=== PATIENT | male | born 1975 | race Caucasian/White ===

== ENCOUNTER → 2020-01-02 | Outpatient (CLI) | payer BC ==
--- NOTE | 2020-01-02 18:37 | CT ---
EXAMINATION TYPE: CT sinus wo con DATE OF EXAM: 01/02/2020 COMPARISON: NONE HISTORY: Frontal sinus headache and facial pain x3 months. CT DLP: 416.30 mGycm. Automated Exposure Control for Dose Reduction was Utilized. TECHNIQUE: CT scan of the sinuses is performed without contrast, axial images are obtained, coronal r eformatted images are also reviewed. FINDINGS: Smaller caliber right maxillary sinus. The paranasal sinuses including the frontal, ethmoi d, sphenoid, and maxillary sinuses bilaterally are well-aerated without suspicious opacification or a ir-fluid levels. The ostiomeatal complex is patent on the left on coronal image 20 and blocked by an tral mucosal thickening on the right. Nasal septum is deviated to right of midline. Visualized portion of mastoid air cells show no abnormal opacification. The globes are intact bilate rally. Visualized brain parenchyma unremarkable. IMPRESSION: Chronic antral mucosal thickening on the right. No acute sinusitis currently.
== END | disposition home or self-care (01) ==
LOC: RADCTMAIN 17:43
PROVIDERS: ATTEND Otolaryngology
DX: J32.0 Chronic maxillary sinusitis (principal)
CPT/HCPCS: 70486

== ENCOUNTER → 2020-09-10 | Outpatient (CLI) | payer BC ==
[2020-09-10 15:10] LABS: HCT 46.3 % (39.6-50.0); HGB 16.5 g/dL (13.0-17.0); MCH 30.9 pg (27.0-32.0); MCHC 35.6 g/dL (32.0-37.0); MCV 86.7 fL (80.0-97.0); Platelet Count 234 X 10*3/uL (140-440); RBC 5.34 X 10*6/uL (4.40-5.60); WBC 5.05 X 10*3/uL (4.50-10.00)
[2020-09-10 15:57] LABS: Gliadin AB IgA, Deaminated NEGATIVE (NEGATIVE); Gliadin AB IgA, Unit 1.6 U/mL; Gliadin AB IgG, Deaminated NEGATIVE (NEGATIVE)
[2020-09-10 18:43] LABS: Erythrocyte Sedimentation Rate 3 mm/Hr (0-15)
[2020-09-11 00:17] LABS: ALT 47 U/L (10-49); AST 33 U/L (14-35); African American GFR (CKD) 94.8 (60.0-200.0); Albumin/Globulin Ratio 2.74 (1.60-3.17); Alkaline Phosphatase 66 U/L (41-126); BUN/Creat Ratio 14.55 Ratio (12.00-20.00); Calcium 10.3 mg/dL (8.7-10.3); Carbon Dioxide 26.2 mmol/L (21.6-31.8); Chloride 102 mmol/L (96-109); Globulin 1.9 g/dL (1.6-3.3); Glucose 96 mg/dL (70-110); Non-African American GFR(CKD) 81.8 (60.0-200.0); Potassium 4.3 mmol/L (3.5-5.5); Sodium 136 mmol/L (135-145); Total Bilirubin 0.8 mg/dL (0.2-1.2); Total Protein 7.1 g/dL (6.2-8.2)
[2020-09-11 15:26] LABS: C Reactive Protein <0.4 mg/dL (0.0-0.8)
== END | disposition home or self-care (01) ==
LOC: LABWHC1 09:21
PROVIDERS: ATTEND Physician Assistant
DX: R19.7 Diarrhea, unspecified (principal)
CPT/HCPCS: 36415; 80053; 83516; 85027; 85652; 86140

== ENCOUNTER → 2020-10-03 | Outpatient (CLI) | payer BC ==
[2020-10-03 13:50] LABS: African American GFR (CKD) >90 (>60 ml/min/1.73 sqM); Blood Urea Nitrogen 16 mg/dL (9-20); Non-African American GFR(CKD) 88 (>60 ml/min/1.73 sqM)
[2020-10-03 14:07] LABS: T4, Free (Free Thyroxine) 1.14 ng/dL (0.78-2.19)
--- NOTE | 2020-10-03 16:28 | CT ---
EXAMINATION TYPE: CT abdomen pelvis w con DATE OF EXAM: 10/03/2020 COMPARISON: None INDICATION: abnormal weight loss (25 lbs in one month), diarrhea DLP: 1099.7 mGycm, Automated exposure control for dose reduction was used. CONTRAST: 100 mL of Isovue 300. Study performed with Oral Contrast TECHNIQUE: Axial images were obtained from above the diaphragm to the pubic rami in the axial plane a t 5 mm thick sections. Reconstructed images are reviewed on the computer in the coronal plane. FINDINGS: Limited CT sections are obtained the lung bases. The lung bases are clear. Epicardial fat pad is at the right heart border. CT ABDOMEN: Liver: Normal Spleen: Normal. Splenules are present. Pancreas: Normal Adrenal glands: The adrenal glands are normal. Gallbladder: Normal Kidneys: No masses are evident. No hydronephrosis is present. No cysts are present. Delayed images were obtained through the kidneys, which remain unremarkable. Aorta: Normal Inferior vena cava: Normal. CT PELVIS: Loops of bowel within the abdomen and pelvis are normal. There are loops of bowel which are incom pletely distended or lack oral contrast limiting their evaluation. Appendix: Normal as visualized. Urinary bladder: Normal. Genitourinary structures: Prominent prostate Osseous structures: No suspicious lytic or sclerotic lesions. IMPRESSIONS: 1. No suspicious acute CT abnormality.
[2020-10-03 21:57] LABS: Gliadin AB IgA, Deaminated NEGATIVE (NEGATIVE); Gliadin AB IgA, Unit 1.3 U/mL; Gliadin AB IgG, Deaminated NEGATIVE (NEGATIVE)
[2020-10-03 22:21] LABS: Hemoglobin A1C 4.7 % (4.0-6.0)
== END | disposition home or self-care (01) ==
LOC: RADCTMAIN 12:58
PROVIDERS: ATTEND Internal Medicine Gastroenterology
DX: R63.4 Abnormal weight loss (principal)
CPT/HCPCS: 86316; 84439; 82565; 84443; 84520; 83516 ×4; 83036; 74177; 36415; Q9967

== ENCOUNTER → 2020-10-03 | Outpatient (CLI) | payer BC | END | disposition home or self-care (01) | LOC: LABWHC1 12:25 | PROVIDERS: ATTEND Internal Medicine | DX: Z53.9 Procedure and treatment not carried out, unspecified reason (principal) ==

== ENCOUNTER → 2023-08-01 | Outpatient (CLI) | payer BC ==
[2023-08-01 09:29] LABS: Appearance,Urine Clear (Clear); Bilirubin,Urine Negative (Negative); Blood,Urine Negative (Negative); Color,Urine Yellow; Glucose,Urine (UA) Negative (Negative); Ketones,Urine Negative (Negative); Leukocyte Esterase,Urine Negative (Negative); Nitrite,Urine Negative (Negative); Protein,Urine Trace (Negative); Specific Gravity,Urine 1.023 (1.001-1.035); Urobilinogen,Urine <2.0 mg/dL (<2.0)
[2023-08-01 13:02] LABS: Basophils # (A) 0.01 X 10*3/uL (0.00-0.10); Basophils % (A) 0.3 %; Eosinophils % (A) 3.1 %; HCT 41.9 % (39.6-50.0); HGB 15.4 g/dL (13.0-17.0); Lymphocytes % (A) 40.2 %; MCHC 36.8 g/dL (32.0-37.0); MCV 84.5 FL (80.0-97.0); Mean Platelet Volume 10.5 FL (9.5-12.2); Monocytes # (A) 0.13 X 10*3/uL (0.20-1.00); NRBC Per 100 WBC 0 X 10*3/uL (0.00-0.01); Neutrophils # (A) 1.68 X 10*3/uL (1.80-7.70); Neutrophils % (A) 52.1 %; Platelet Count 188 X 10*3/uL (140-440); RBC 4.96 X 10*6/uL (4.40-5.60); RDW 12.7 % (11.5-14.5); WBC 3.23 X 10*3/uL (4.50-10.00)
[2023-08-01 13:27] LABS: Erythrocyte Sedimentation Rate 4 mm/Hr (0-15)
[2023-08-01 13:34] LABS: BUN/Creat Ratio 16.33 Ratio (12.00-20.00); Blood Urea Nitrogen 14.7 mg/dL (9.0-27.0); C Reactive Protein <0.30 mg/dL (0.00-0.80); Chloride 105 mmol/L (96-109); Glucose 106 mg/dL (70-110); LDL Cholesterol,Calculated 67.1 mg/dL (0.0-131.0); Potassium 4.2 mmol/L (3.5-5.5); Rheumatoid Factor, Qnt <15 IU/mL (0-15); Sodium 140 mmol/L (135-145); Uric Acid 4.3 mg/dL (3.7-8.7); VLDL Calculation 18.78 mg/dL (5.00-40.00)
[2023-08-01 13:35] LABS: ALT 43 U/L (10-49); AST 30 U/L (14-35); Albumin 4.8 g/dL (3.8-4.9); Albumin/Globulin Ratio 2.18 Ratio (1.60-3.17); Alkaline Phosphatase 71 U/L (41-126); Calcium 9.7 mg/dL (8.7-10.3); Carbon Dioxide 24.8 mmol/L (21.6-31.8); Globulin 2.2 g/dL (1.6-3.3); Total Bilirubin 0.7 mg/dL (0.3-1.2)
[2023-08-03 10:15] LABS: Cyclic Citrull Pep IgG Unit <1.5 U/mL (<=3.9); Cyclic Citrullinated Pep IgG Negative
== END | disposition home or self-care (01) ==
LOC: LABWHC1 08:28
PROVIDERS: ATTEND Internal Medicine
DX: Z00.00 Encounter for general adult medical examination without abnormal findings (principal); D69.0 Allergic purpura; N40.0 Benign prostatic hyperplasia without lower urinary tract symptoms; E78.2 Mixed hyperlipidemia; K52.9 Noninfective gastroenteritis and colitis, unspecified; G47.33 Obstructive sleep apnea (adult) (pediatric); N52.1 Erectile dysfunction due to diseases classified elsewhere
CPT/HCPCS: 36415; 80053; 80061; 81003; 82306; 83036; 84153; 84403; 84443; 84550; 85025; 85652; 86038; 86140; 86160; 86162; 86200; 86431

== ENCOUNTER → 2023-10-27 | Outpatient (CLI) | payer BC ==
[2023-10-27 15:34] VITALS: BP 126/90; PULSE 109; RESP 16; TEMP 98.8
--- NOTE | 2023-10-27 17:12 | P.SLEEP ---
History of Present Illness H&P Date: 10/27/23 This is a 48-year-old male patient was referred to me due to concerns of obstructive sleep apnea. The patient has chronic fatigue and sleepiness. He has loud snoring. His sleep is fragmented and the patient has frequent nocturnal arousals and he wakes up with a dry mouth in the morning. He has been doing this for several years. No recent weight gain. 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 No history of any motor vehicle accidents because of feeling drowsy or sleepy. He goes to bed around 10 PM and wakes up 6:15 AM in the morning and is averaging around 6 to 7 hours of sleep. He has occasional nocturnal heartburn. He has been suffering from irritable bowel disease for many years. He has episodic diarrhea. He will occasionally takes naps during the day. No sleep paralysis. No hallucinations. No cataplexy. He sleeps on his side. His weight has been stable over the past 5 to 10 years. No personal or family history of obstructive sleep apnea. No history of any cardiovascular complications. No atrial fibrillation. No CHF. No myocardial infarction. No headaches. No head trauma. Review of Systems Constitutional: Denies chills, Denies fever Eyes: denies as per HPI, denies blurred vision, denies bulging eye, denies decreased vision, denies diplopia, denies discharge, denies dry eye, denies irritation, denies itching, denies pain, denies photophobia, denies loss of peripheral vision, denies loss of vision, denies tunnel vision/blind spots Ears: deny: decreased hearing, ear discharge, earache, tinnitus Ears, nose, mouth and throat: Reports as per HPI Breasts: absent: as per HPI, gynecomastia Cardiovascular: Reports as per HPI Respiratory: Reports snoring Gastrointestinal: Reports as per HPI Genitourinary: Reports as per HPI Musculoskeletal: Reports as per HPI Musculoskeletal: absent: ankle pain, ankle stiffness, ankle swelling, as per HPI, elbow pain, elbow stiffness, elbow swelling, foot pain, foot stiffness, foot swelling, hand pain, hand stiffness, hand swelling, hip pain, hip stiffness, hip swelling, knee pain, knee stiffness, knee swelling, shoulder pain, shoulder stiffness, shoulder swelling, wrist pain, wrist stiffness, wrist swelling Integumentary: Reports as per HPI Neurological: Reports as per HPI Psychiatric: Reports hypersomnia, Reports sleep disturbances Endocrine: Reports as per HPI Hematologic/Lymphatic: Reports as per HPI Allergic/Immunologic: Reports as per HPI Past Medical History Past Medical History: Asthma, GERD/Reflux, Hyperlipidemia Additional Past Medical History / Comment(s): IBSD, RAPID HEART RATE, ASTHMA IN CHILDHOOD, ENVIRONMENTAL ALLERGIES (NUMEROUS) History of Any Multi-Drug Resistant Organisms: None Reported Past Surgical History: Orthopedic Surgery Additional Past Surgical History / Comment(s): LEFT RING FINGER DISLOCATED Past Psychological History: Anxiety Smoking Status: Never smoker Past Alcohol Use History: Rare Past Drug Use History: None Reported - Past Family History Father Family Medical History: Hypertension Additional Family Medical History / Comment(s): OTHER FAMILY MEDICAL HX INCLUDES BROTHER - HIGH CHOLESTEROL, HTN, MENTAL ILLNESS, MOM - BRONCHITIS Medications and Allergies Home Medications Medication Instructions Recorded Confirmed Type Amitriptyline HCl 50 mg PO HS 10/27/23 10/27/23 History Atorvastatin [Lipitor] 20 mg PO DAILY 10/27/23 10/27/23 History Metoprolol Succinate [Metoprolol 25 mg PO DAILY 10/27/23 10/27/23 History Succinate ER] Pantoprazole [Protonix] 40 mg PO DIRECTED PRN 10/27/23 10/27/23 History Physical Exam Vitals: Vital Signs Temp Pulse Resp BP Pulse Ox 10/27/23 15:34 98.8 F 109 H 16 126/90 97 Intake and Output 10/27/23 10/27/23 10/27/23 06:59 14:59 22:59 Other: Weight 105.687 kg Assessment and Plan Plan: Loud snoring associated with sleep fragmentation and chronic hypersomnia sleepiness, high clinical suspicion for obstructive sleep apnea and the patient will need further investigation. 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 Will proceed with a home sleep study and will make further recommendation of treatment options accordingly. Maintain good sleep hygiene measures. Maintain regular sleep schedule. Avoid driving especially when feeling drowsy or sleepy. Will continue to follow. Sleep Note - Sleep Data ESS Total: 7 - Sleep Note Sleep Note: Temperature: 98.8 F Pulse Rate: 109 Respiratory Rate: 16 Blood Pressure: 126/90 SpO2: 97 Height: 6 ft 3 in Weight: 105.687 kg BMI: Neck Circumference: 18.2
== END ==
LOC: 3 N SLEEP 15:09
PROVIDERS: ATTEND Internal Medicine Critical Care Medicine
DX: R06.83 Snoring (principal); G47.10 Hypersomnia, unspecified; J39.2 Other diseases of pharynx; I10 Essential (primary) hypertension; E78.5 Hyperlipidemia, unspecified; K58.9 Irritable bowel syndrome, unspecified; Z87.09 Personal history of other diseases of the respiratory system; Z91.09 Other allergy status, other than to drugs and biological substances; Z79.899 Other long term (current) drug therapy
CPT/HCPCS: 99211

== ENCOUNTER 2023-10-29 16:48 | Outpatient (CLI) | payer BC ==
--- NOTE | 2023-11-09 00:30 | P.PCN ---
Date of Procedure: 10/29/23 Operative Findings: Home sleep study testing Date of service is 10/29/2023 History This is a 48-year-old male patient was referred to me due to concerns of obstructive sleep apnea. The patient has chronic fatigue and sleepiness. He has loud snoring. His sleep is fragmented and the patient has frequent nocturnal arousals and he wakes up with a dry mouth in the morning. He has been doing this for several years. No recent weight gain. 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 No history of any motor vehicle accidents because of feeling drowsy or sleepy. He goes to bed around 10 PM and wakes up 6:15 AM in the morning and is averaging around 6 to 7 hours of sleep. He has occasional nocturnal heartburn. He has been suffering from irritable bowel disease for many years. He has episodic diarrhea. He will occasionally takes naps during the day. No sleep paralysis. No hallucinations. No cataplexy. He sleeps on his side. His weight has been stable over the past 5 to 10 years. No personal or family history of obstructive sleep apnea. No history of any cardiovascular complications. No atrial fibrillation. No CHF. No myocardial infarction. No headaches. No head trauma. Technical description The [employer] system was used to complete this home sleep study. The total recording duration was 8 hours and 12 minutes. The study started at 9:09 PM ended at 5:22 AM. There was a total of 7 hours and 26 minutes of flow monitoring and 7 hours and 57 minutes of oxygen saturation monitoring Results The respiratory events were multiple and the patient had a total of 143 obstructive apneas and 122 obstructive hypopneas. The resulting AHI was 35.7 consistent with severe obstructive sleep apnea. Oxygenation analysis The patient had oxygen saturations throughout the sleep study. The baseline pulse ox while awake was 97%. Average pulse ox during sleep was 94%. Lowest pulse ox was 85% Cardiac summary The average heart rate was 70 with a minimum heart rate of 54 and a maximum heart rate of 130 Assessment Severe symptomatic CHAS with an AHI of 35.7 Mild nocturnal oxygen saturations Loud snoring associated with sleep fragmentation and chronic hypersomnia sleepiness Mallampati class IV with significant crowding of the posterior pharynx Chronic hypersomnia with an [place] score of 7 Hypertension Hyperlipidemia Irritable bowel disease syndrome History of mild intermittent bronchial asthma History of intermittent allergies Plan Proceed with CPAP titration.
== END 2023-10-30 13:21 | disposition home or self-care (01) ==
LOC: 3 N SLEEP 16:48
PROVIDERS: ATTEND Internal Medicine Critical Care Medicine
DX: G47.33 Obstructive sleep apnea (adult) (pediatric) (principal); I10 Essential (primary) hypertension; E78.5 Hyperlipidemia, unspecified; K58.0 Irritable bowel syndrome with diarrhea; J45.909 Unspecified asthma, uncomplicated; J39.2 Other diseases of pharynx; G47.36 Sleep related hypoventilation in conditions classified elsewhere; Z91.09 Other allergy status, other than to drugs and biological substances